=== PATIENT | male | born 2000 | race Caucasian/White ===

== ENCOUNTER 2020-02-29 19:45 | Emergency (ER) | payer OTHER ==
[2020-02-29] MEDS ORDERED: cefTRIAXone 1 GM Vial IM ONE (22:11)
[2020-02-29] MEDS ORDERED: Lidocaine 1% 20 ML MDV ONE (22:18)
--- NOTE | 2020-02-29 22:20 | EDM.PDOC ---
ED HPI GENERAL MEDICAL PROBLEM - General Chief Complaint: General Stated Complaint: TESTICLE PAIN Time Seen by Provider: 02/29/20 21:42 Source of Information: Reports: Patient History Limitations: Reports: No Limitations - History of Present Illness INITIAL COMMENTS - FREE TEXT/NARRATIVE: Patient presents with right testicle pain for 3 days. Today it is getting worse. He has a little pain in low abdomen to right groin. No fever. He denies concern of STD but is sexually active. Denies penile sores or discharge. Right Perineal Area Pain Score (Numeric/FACES): 5 - Related Data Allergies Allergy/AdvReac Type Severity Reaction Status Date / Time No Known Allergies Allergy Verified 02/29/20 20:08 Home Meds: Home Meds . [No Known Home Meds] 02/29/20 [History] Past Medical History - Past Surgical History Musculoskeletal Surgical History: Reports: Other (See Below) Other Musculoskeletal Surgeries/Procedures:: arm surgery when he was [age] years old Social & Family History - Tobacco Use Tobacco Use Status *Q: Never Tobacco User - Recreational Drug Use Recreational Drug Use: No ED ROS GENERAL - Review of Systems Review Of Systems: See Below Constitutional: Denies: Fever, Chills, Weakness HEENT: Denies: Ear Pain, Throat Pain, Vision Change Respiratory: Denies: Shortness of Breath, Cough Cardiovascular: Denies: Chest Pain, Lightheadedness, Syncope GI/Abdominal: Denies: Diarrhea, Vomiting : Denies: Discharge, Dysuria, Flank Pain, Hematuria Musculoskeletal: Reports: No Symptoms Skin: Denies: Cyanosis, Jaundice, Mottled, Pallor, Diaphoresis Neurological: Denies: Confusion, Dizziness, Headache, Seizure, Syncope, Trouble Speaking, Difficulty Walking Psychiatric: Denies: Agitation, Anxiety, Confusion ED EXAM, GENERAL - Physical Exam Exam: See Below Exam Limited By: No Limitations General Appearance: Alert, WD/WN, No Apparent Distress Eye Exam: Bilateral Eye: EOMI, Normal Inspection, PERRL Ears: Normal External Exam, Hearing Grossly Normal Nose: Normal Inspection, No Blood Throat/Mouth: Normal Inspection, Normal Lips, Normal Voice, No Airway Compromise Head: Atraumatic, Normocephalic Neck: Normal Inspection, Full Range of Motion Respiratory/Chest: No Respiratory Distress, Lungs Clear, Normal Breath Sounds Cardiovascular: Regular Rate, Rhythm, No Murmur GI/Abdominal: Normal Bowel Sounds, Soft, Non-Tender (Male) Exam: No Hernia, Testicular Mass (spongy swelling posterior), Testicular Tenderness (R) (posterior, consistent with epididymitis). No: Circumcised, Penile Lesions, Rash, Scrotum Tenderness (L), Urethral Discharge Back Exam: Normal Inspection, Full Range of Motion Extremities: Normal Inspection, Normal Range of Motion Neurological: Alert, Oriented, Normal Cognition, No Motor/Sensory Deficits Psychiatric: Normal Affect, Normal Mood Skin Exam: Warm, Dry, Intact, Normal Color, No Rash Course - Vital Signs Last Recorded V/S: Last Vital Signs Temp 99.0 F 02/29/20 20:09 Pulse 93 02/29/20 20:09 Resp 18 02/29/20 20:09 BP 142/76 H 02/29/20 20:09 Pulse Ox 97 02/29/20 20:09 - Orders/Labs/Meds Orders: Active Orders 24 hr Category Date Time Status CHLAMYDIA AND GONORRHEA BY TMA Stat Lab 02/29/20 22:10 Received CULTURE URINE [RM] Stat Lab 02/29/20 22:10 Received Labs: Laboratory Tests 02/29/20 Range/Units 22:10 Specimen Type Urinvoid Urine Color Yellow (YELLOW) Urine Appearance Slightly cloudy H (CLEAR) Urine pH 6.0 (5.0-9.0) Ur Specific Oliver >= 1.030 (1.005-1.030) Urine Protein Negative (NEGATIVE) mg/dL Urine Glucose (UA) Negative (NEGATIVE) mg/dL Urine Ketones Negative (NEGATIVE) mg/dL Urine Occult Blood Negative (NEGATIVE) Urine Nitrite Negative (NEGATIVE) Urine Bilirubin Negative (NEGATIVE) Urine Urobilinogen 2.0 H (0.2-1.0) E.U./dL Ur Leukocyte Esterase Negative (NEGATIVE) Urine RBC 0-5 (0-5) /HPF Urine WBC 0-5 (0-5) /HPF Ur Epithelial Cells Rare /LPF Urine Bacteria Rare (NONE TO FEW) /HPF Meds: Medications Discontinued Medications Generic Name Dose Route Start Last Admin Trade Name Freq PRN Reason Stop Dose Admin Ceftriaxone Sodium 1 gm 02/29/20 22:11 02/29/20 22:23 Rocephin IM 02/29/20 22:12 1 gm ONETIME ONE Administration Doxycycline Hyclate 200 mg 02/29/20 22:12 02/29/20 22:22 Vibramycin PO 02/29/20 22:13 200 mg ONETIME ONE Administration Lidocaine HCl Confirm 02/29/20 22:18 02/29/20 22:36 Xylocaine 1% Administered 02/29/20 22:19 Not Given Dose 20 ml .ROUTE .[facility] ONE - Re-Assessments/Exams Free Text/Narrative Re-Assessment/Exam: 02/29/20 23:08 Discussed findings and treatment plan with patient. After the first doses of antibiotics he is discharged to home in stable condition. Departure - Departure Time of Disposition: 22:45 Disposition: Home, Self-Care 01 Condition: Good Clinical Impression: Epididymitis - Discharge Information Instructions: Epididymitis Referrals: PCP,Not In Area [Primary Care Provider] - Forms: ED Department Discharge Additional Instructions: Take the antibiotic as directed. Follow up with your PCP on Tuesday or Tuesday if not improving. If worsening recheck CHELSEA either in clinic with ultrasound or ER. Sepsis Event Note (ED) - Evaluation Sepsis Screening Result: No Definite Risk - Focused Exam Vital Signs: Vital Signs Temp Pulse Resp BP Pulse Ox 02/29/20 20:09 99.0 F 93 18 142/76 H 97 - My Orders Last 24 Hours: My Active Orders 02/29/20 22:10 CHLAMYDIA AND GONORRHEA BY TMA Stat CULTURE URINE [RM] Stat - Assessment/Plan Last 24 Hours: My Active Orders 02/29/20 22:10 CHLAMYDIA AND GONORRHEA BY TMA Stat CULTURE URINE [RM] Stat
== END 2020-02-29 23:00 | disposition home or self-care (01) ==
LOC: KA.ED 19:45
DX: N45.1 Epididymitis (principal)
CPT/HCPCS: 81001; 87086; 96372; 99284; A9270; J0696; 87491; 87591